=== PATIENT | female | born 1960 | race Caucasian/White ===

== ENCOUNTER 2017-09-24 12:38 | Emergency (ER) | payer OTHER ==
[~2017-09-24] VITALS: Ht 160 cm; Wt 63.5 kg
[2017-09-24 12:41] VITALS: BP 203/119; PULSE 106; RESP 16; TEMP 98.6
[2017-09-24] MEDS ORDERED: LORazepam 1 MG TAB PO ONE (12:45)
[2017-09-24] MEDS ORDERED: KETOROLAC TROMETHAMINE 60 MG/2 ML (IM) VIAL IM ONE (12:45)
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
[2017-09-24 14:06] VITALS: RESP 16
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
[2017-09-24] MEDS ORDERED: ROBA750T PO (14:24)
[2017-09-24] MEDS ORDERED: TRAM50 PO (14:24)
[2017-09-24] MEDS ORDERED: LISI10TA3 PO (14:30)
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
[2017-09-24 15:07] VITALS: BP 166/101
== END 2017-09-24 15:09 | disposition home or self-care (01) ==
LOC: PHED 12:38
DX: S09.90XA Unspecified injury of head, initial encounter (principal); S46.912A Strain of unspecified muscle, fascia and tendon at shoulder and upper arm level, left arm, initial encounter; S16.1XXA Strain of muscle, fascia and tendon at neck level, initial encounter; I10 Essential (primary) hypertension; V49.59XA Passenger injured in collision with other motor vehicles in traffic accident, initial encounter; Y92.410 Unspecified street and highway as the place of occurrence of the external cause; Z88.0 Allergy status to penicillin
CPT/HCPCS: 70450; 72125; 73030; 96372; 99284; J1885